=== PATIENT | male | born 1950 | race Caucasian/White ===

== ENCOUNTER 2016-07-09 16:36 | Emergency (ER) | payer OTHER ==
[~2016-07-09] VITALS: Ht 185.4 cm; Wt 130.2 kg
[2016-07-09 17:14] VITALS: BP 144/97
[2016-07-09 18:03] LABS: APPEARANCE,URINE CLEAR (CLEAR); BILIRUBIN,URINE NEGATIVE (NEGATIVE); BLOOD, URINE 3+ (NEGATIVE); COLOR,URINE YELLOW (YELLOW); LEUKOCYTE ESTERASE ,URINE NEGATIVE (NEGATIVE); NITRITE, URINE NEGATIVE (NEGATIVE); PROTEIN,URINE NEGATIVE (NEGATIVE); UGLUCOSE NEGATIVE (NEGATIVE); UROBILINOGEN,URINE 0.2 EU/dL (0.2 - 1)
[2016-07-09 18:37] LABS: BACTERIA,URINE RARE /HPF (None Seen); RBC,URINE 50-80 /HPF (0-5); SQUAMOUS EPITHELIAL CELL,UR None Seen /LPF (0-3 (FEW)); WBC,URINE 0-5 (RARE) /HPF (0-5)
[2016-07-09 18:54] LABS: BASOPHILS # (AUTO) 0.2 K/uL (0.00-0.22); BASOPHILS % (AUTO) 2.2 % (0.0-2.0); EOSINOPHILS # (AUTO) 0.2 K/uL (0-0.4); EOSINOPHILS % (AUTO) 2.4 % (0.0-4.0); HEMATOCRIT 44.3 % (36-52); HEMOGLOBIN 14.9 g/dL (12.0-18.0); LYMPHOCYTES # (AUTO) 2.2 K/uL (2.0-11.5); LYMPHOCYTES % (AUTO) 32.5 % (20.5-51.1); MEAN CORPUSCULAR HEMOGLOBIN 30 pg (27-31); MEAN CORPUSCULAR HGB CONC 34 g/dL (33-37); MEAN CORPUSCULAR VOLUME 90 fL (80-94); MONOCYTES # (AUTO) 0.8 K/uL (0.8-1.0); MONOCYTES % (AUTO) 11.9 % (1.7-9.3); NEUTROPHILS # (AUTO) 3.4 K/uL (1.8-7.7); PLATELET COUNT (AUTO) 215 K/uL (140-450); RED BLOOD CELL COUNT(AUTO) 4.92 MIL/uL (4.20-6.10); RED CELL DISTRIBUTION WIDTH 12.1 % (11.6-13.7); WHITE BLOOD COUNT (AUTO) 6.8 K/uL (4.8-10.8)
[2016-07-09 19:00] LABS: ALBUMIN 3.9 g/dL (3.4-5.0); ANION GAP 10.9 (8-16); CALCIUM 9.2 mg/dL (8.5-10.1); CARBON DIOXIDE 29.9 mmol/L (21-32); POTASSIUM 3.8 mmol/L (3.5-5.1); TOTAL BILIRUBIN 0.5 mg/dL (0.0-1.0); TOTAL PROTEIN, SERUM 7.4 g/dL (6.4-8.2)
--- NOTE | 2016-07-09 19:05 | NUR ---
PATIENT PRESENTS TO ED WITH C/O RIGHT FLANK PAIN WITH VOMITING X2 DAYS; DENIES DIARRHEA; SKIN IS PINK/WARM/DRY; AAOX4 WITH EVEN AND STEADY GAIT; LUNGS CLEAR BL; HR EVEN AND REGULAR; PT DENIES ANY FEVER, CP, SOB, OR COUGH AT THIS TIME; PATIENT STATES PAIN OF 3/10 AT THIS TIME; VSS; PATIENT POSITIONED FOR COMFORT; HOB ELEVATED; BEDRAILS UP X2; BED DOWN. ER MD MADE AWARE OF PT STATUS.
--- NOTE | 2016-07-09 19:15 | NUR ---
REPORT RECEIVED FROM REINA MONROY
--- NOTE | 2016-07-09 19:26 | NUR ---
Dr. Rosa evaluating patient at bedside.
--- NOTE | 2016-07-09 19:38 | NUR ---
REPORT GIVEN TO REINA RIVAS FOR CONTINOUS OF CARE
[2016-07-09] MEDS ORDERED: fentaNYL 0.05 MG/ML VIAL IM ONE (19:45)
[2016-07-09] MEDS ORDERED: ONDANSETRON 4 MG ODT PO ONE (19:45)
--- NOTE | 2016-07-09 20:20 | NUR ---
PO CHALLENGE MET, NO EMESIS AT THIS TIME.
[2016-07-09 20:30] VITALS: BP 144/97
--- NOTE | 2016-07-09 20:30 | NUR ---
Patient discharged with v/s stable. Written and verbal after care instructions given and explained. Patient alert, oriented and verbalized understanding of instructions. Ambulatory with steady gait. All questions addressed prior to discharge. ID band removed. Patient advised to follow up with PMD. Rx of ZOFRAN AND TRAMADOL given. Patient educated on indication of medication including possible reaction and side effects. Opportunity to ask questions provided and answered.
== END 2016-07-09 20:30 | disposition home or self-care (01) ==
LOC: MED 16:36
DX: R07.81 Pleurodynia (principal); R31.9 Hematuria, unspecified; I10 Essential (primary) hypertension; M19.90 Unspecified osteoarthritis, unspecified site
CPT/HCPCS: 36415; 74176; 80053; 81001; 83690; 85025; 96372; 99285; J3010; S0119

== ENCOUNTER 2019-12-10 14:08 | Emergency (ER) | payer OTHER ==
[~2019-12-10] VITALS: Ht 185.4 cm; Wt 136.1 kg
[2019-12-10 14:20] VITALS: BP 138/91
--- NOTE | 2019-12-10 14:50 | NUR ---
Denies fever, n/v/d. Feels better with icing the area. Denies falls/trauma.Pt aox4 , afibrile , ambulatory with steady gait , sce , round soft abdomen. Hx- DM, HTN, HLD, chronic low back pain NKA
--- NOTE | 2019-12-10 14:56 | NUR ---
AMB TO RESTROOM TO PROVIDE URINE SAMPLE
[2019-12-10 15:27] LABS: BASOPHILS # (AUTO) 0.1 K/uL (0.00-0.22); BASOPHILS % (AUTO) 1.6 % (0.0-2.0); EOSINOPHILS # (AUTO) 0.1 K/uL (0-0.4); EOSINOPHILS % (AUTO) 2.7 % (0.0-4.0); HEMATOCRIT 40.3 % (36-52); HEMOGLOBIN 14.1 g/dL (12.0-18.0); LYMPHOCYTES # (AUTO) 1.4 K/uL (2.0-11.5); LYMPHOCYTES % (AUTO) 35.2 % (20.5-51.1); MEAN CORPUSCULAR HEMOGLOBIN 31 pg (27-31); MEAN CORPUSCULAR HGB CONC 35 g/dL (33-37); MEAN CORPUSCULAR VOLUME 89.7 fL (80-94); MONOCYTES # (AUTO) 0.5 K/uL (0.8-1.0); MONOCYTES % (AUTO) 11.8 % (1.7-9.3); NEUTROPHILS % (AUTO) 48.7 % (42.2-75.2); PLATELET COUNT (AUTO) 184 K/uL (140-450); RED CELL DISTRIBUTION WIDTH 13.4 % (11.6-13.7)
[2019-12-10 15:31] LABS: APPEARANCE,URINE CLEAR (CLEAR); BILIRUBIN,URINE NEGATIVE (NEGATIVE); BLOOD, URINE NEGATIVE (NEGATIVE); COLOR,URINE YELLOW (YELLOW); LEUKOCYTE ESTERASE ,URINE NEGATIVE (NEGATIVE); NITRITE, URINE NEGATIVE (NEGATIVE); UGLUCOSE NEGATIVE (NEGATIVE)
[2019-12-10 15:40] LABS: ALBUMIN 3.6 g/dL (3.4-5.0); ANION GAP 14.8 (8-16); CARBON DIOXIDE 24.8 mmol/L (21-32); POTASSIUM 3.6 mmol/L (3.5-5.1); TOTAL BILIRUBIN 0.6 mg/dL (0.0-1.0)
--- NOTE | 2019-12-10 15:46 | NUR ---
dr ring at bedside evaluating pt.
[2019-12-10] MEDS ORDERED: FAMOTIDINE 20 MG/2 ML VIAL IVP STA (15:50)
[2019-12-10] MEDS ORDERED: ALUMINUM HYD/MAG/SIMETHICONE 30 ML UDC PO STA (15:50)
[2019-12-10] MEDS ORDERED: MORPHINE SULFATE 4 MG/ML SYR IVP STA (15:50)
--- NOTE | 2019-12-10 15:59 | NUR ---
consent for abdomen and pelvis with contrast signed by pt and dr ring
--- NOTE | 2019-12-10 16:26 | NUR ---
pt to ct scan via wheelchair.
--- NOTE | 2019-12-10 16:43 | NUR ---
PT BACK FROM CT SCAN VIA WHEELCHAIR.
--- NOTE | 2019-12-10 17:41 | NUR ---
PT COMFORTABLE IN BED ,WITH NO COMPLAINT , SIDE RAIL UP X1 AND LOCK TO LOWEST POSTION.
--- NOTE | 2019-12-10 17:58 | NUR ---
dr ring at bedside reevaluating pt.
[2019-12-10 18:31] VITALS: BP 130/88
--- NOTE | 2019-12-10 18:34 | NUR ---
Patient discharged with v/s stable. Written and verbal after care instructions given and explained regarding abdominal pain. Patient alert, oriented and verbalized understanding of instructions. Ambulatory with steady gait. All questions addressed prior to discharge. ID band removed. Patient advised to follow up with PMD. Rx of norco given. Patient educated on indication of medication including possible reaction and side effects. Opportunity to ask questions provided and answered.
== END 2019-12-10 18:34 | disposition home or self-care (01) ==
LOC: MED 14:08
DX: R10.11 Right upper quadrant pain (principal); E11.9 Type 2 diabetes mellitus without complications; I10 Essential (primary) hypertension
CPT/HCPCS: 36415; 74177; 80053; 81003; 82150; 83690; 84484; 85025; 96374; 96375; 99285; J2270; J3490; Q9967